=== PATIENT | male | born 1930 | race Caucasian/White ===

== ENCOUNTER 2016-07-08 07:38 | Inpatient (IN) | payer OTHER ==
[2016-07-08] VITALS (16 sets, daily range): BP systolic 98–159; BP diastolic 19–99
[~2016-07-08] VITALS: Ht 188 cm; Wt 113.5 kg
[~2016-07-08 07:38] MED LIST: CARDIZEM CD240 MG PO; CIPRO250 MG PO; DIOVAN HCT 31 TABLE1 PO; FENOFIBRATE200 M1 PO; GLUCOPHAGE500 MG PO; IMIPRAMINE HCL10 MG PO; LEVEMIR FL100 UNIT/1 SC; LEVEMIR100 UNIT/2 SC; LISINOPRIL20 MG PO; NOVOLOG PE100 UNITS/ SC; PROBIOTIC1 EAC3 PO; ROCEPHIN1000 MG IM; TAMSULOSIN HCL0.4 MG PO; TYLENOL EXTRA500 MG PO; ZESTRIL20 MG PO
[2016-07-08 07:59] LABS: EOSINOPHIL (%) 0.5 % (0-5); EOSINOPHIL COUNT 0.1 K/uL (0-0.3); HEMATOCRIT 50.6 % (38.0-50.0); IMMATURE GRANULOCYTE (%) 0.6 % (0.0-0.7); IMMATURE GRANULOCYTE COUNT 0.1 K/uL; INSTRUMENT ABS NEUTROPHIL CT 8.9 K/uL; LYMPHOCYTE COUNT 2.6 K/uL (1.0-2.8); MCH 29.9 PG (29.0-34.0); MCHC 34.6 G/DL (30.0-36.0); MCV 86.5 FL (86-99); MEAN PLAT.VOLUME 9.8 uM^3 (9.0-12.4); MONOCYTE (%) 11.6 % (3-12); MONOCYTE COUNT 1.5 K/uL (0-0.8); NEUTROPHIL (%) 67.3 % (45-76); NEUTROPHIL COUNT 8.9 K/uL (1.8-6.4); PLATELET COUNT 307 K/uL (156-360); RBC DIS.WIDTH-CV 13.2 % (11.8-14.6); RBC DIS.WIDTH-SD 41.1 % (39-53); RED BLOOD COUNT 5.85 M/uL (4.00-5.50); WHITE BLOOD COUNT 13.3 K/uL (4.1-10.2)
[2016-07-08 08:28] LABS: AMYLASE 15 IU/L (1-118); ANION GAP 12 MEQ/L (2-14); CHLORIDE 94 MEQ/L (99-109); SAMPLE HEMOLYSIS CHECK 0; SAMPLE ICTERIC CHECK 0; SAMPLE LIPEMIA CHECK 0; SODIUM 132 MEQ/L (136-147)
[2016-07-08 08:38] LABS: INTER. NORMALIZED RATIO 1.1; PROTHROMBIN TIME 11.3 (9.2-11.2); PTT 33.7 (25-32)
[2016-07-08 08:46] LABS: GFR ESTIMATE (CALCULATED) > 59 mL/min/; GLUCOSE 347 mg/dL (70-99); LIPASE 19 U/L (1.0-51.0); SERUM ETHYL ALCOHOL < 10 mg/dL; UREA NITROGEN (BUN) 25 mg/dL (9-23)
[2016-07-08 08:52] LABS: TROP-I INTERPRETATION POSITIVE; TROPONIN-I 102.38 ng/mL (0.0-0.30)
[2016-07-08 09:21] LABS: CREATINE KINASE 661 IU/L (1-294); TOTAL CK 661 IU/L (1-294)
[2016-07-08 09:49] LABS: CK-MB 26.1 ng/mL (0.0-4.9)
[2016-07-08 11:47] LABS: METH RESISTANT S AUREUS PCR NEGATIVE (NEGATIVE); PROBE CHECK PASS; SPECIMEN PROCESSING CONTROL PASS
[2016-07-08 12:10] LABS: HDL CHOLESTEROL 46 MG/DL (Desirable>=40); LDL CHOLESTEROL 57 mg/dL (Desirable<100); NON-HDL CHOLESTEROL 85 mg/dL (Desirable<160); TOTAL CHOLESTEROL 131 mg/dL (Desirable<200); TRIGLYCERIDES 142 MG/DL (Normal: <150)
[2016-07-08] MEDS ORDERED: TOUJEO SOL300 UNIT/1 SC (12:39)
[2016-07-08 13:09] LABS: Estimated Average Glucose 326 mg/dL (70-123)
[2016-07-08 15:15] LABS: TROP-I INTERPRETATION POSITIVE; TROPONIN-I 136.54 ng/mL (0.0-0.30)
[2016-07-08 18:14] LABS: POINT-OF-CARE METER ID UU14162636
[2016-07-08 20:58] LABS: CREATINE KINASE 536 IU/L (1-294); TOTAL CK 536 IU/L (1-294)
[2016-07-08 21:18] LABS: TROP-I INTERPRETATION POSITIVE; TROPONIN-I 115.44 ng/mL (0.0-0.30)
[2016-07-08 21:26] LABS: CK-MB 27.7 ng/mL (0.0-4.9)
[2016-07-08 21:47] LABS: POINT-OF-CARE METER ID UU14174217
[2016-07-09] VITALS (24 sets, daily range): BP systolic 78–124; BP diastolic 48–75
[2016-07-09 02:46] LABS: CREATINE KINASE 663 IU/L (1-294); TOTAL CK 663 IU/L (1-294)
[2016-07-09 03:06] LABS: TROP-I INTERPRETATION POSITIVE
[2016-07-09 03:08] LABS: TROPONIN-I 124.34 ng/mL (0.0-0.30)
[2016-07-09 10:31] LABS: ANION GAP 13 MEQ/L (2-14); CHLORIDE 96 MEQ/L (99-109); GFR ESTIMATE (CALCULATED) 44 mL/min/; POTASSIUM 4.2 MEQ/L (3.7-5.4); SAMPLE HEMOLYSIS CHECK 0; SAMPLE ICTERIC CHECK 0; SAMPLE LIPEMIA CHECK 0; SODIUM 132 MEQ/L (136-147); UREA NITROGEN (BUN) 33 mg/dL (9-23)
[2016-07-09 10:33] LABS: POINT-OF-CARE METER ID UU13113731
[2016-07-09 10:34] LABS: GLUCOSE 68 mg/dL (70-99)
[2016-07-09 10:50] LABS: BASOPHIL COUNT 0.1 K/uL (0-0.1); EOSINOPHIL (%) 0.2 % (0-5); HEMATOCRIT 46.2 % (38.0-50.0); IMMATURE GRANULOCYTE (%) 0.7 % (0.0-0.7); IMMATURE GRANULOCYTE COUNT 0.1 K/uL; INSTRUMENT ABS NEUTROPHIL CT 12.7 K/uL; MCH 29.1 PG (29.0-34.0); MCHC 33.1 G/DL (30.0-36.0); MEAN PLAT.VOLUME 10.3 uM^3 (9.0-12.4); MONOCYTE (%) 10.9 % (3-12); MONOCYTE COUNT 1.8 K/uL (0-0.8); NEUTROPHIL (%) 75.8 % (45-76); NEUTROPHIL COUNT 12.7 K/uL (1.8-6.4); PLATELET COUNT 305 K/uL (156-360); RBC DIS.WIDTH-CV 13.5 % (11.8-14.6); RBC DIS.WIDTH-SD 43.8 % (39-53); RED BLOOD COUNT 5.25 M/uL (4.00-5.50); WHITE BLOOD COUNT 16.7 K/uL (4.1-10.2)
[2016-07-09 10:57] LABS: TROP-I INTERPRETATION POSITIVE
[2016-07-09 12:20] LABS: POINT-OF-CARE METER ID UU13113731
[2016-07-09 14:36] LABS: CREATINE KINASE 847 IU/L (1-294); TOTAL CK 847 IU/L (1-294)
[2016-07-09 14:42] LABS: TROP-I INTERPRETATION POSITIVE
[2016-07-09 14:43] LABS: CK-MB 31.4 ng/mL (0.0-4.9)
[2016-07-09 14:59] LABS: TROPONIN-I 111.16 ng/mL (0.0-0.30)
[2016-07-09 15:18] LABS: POINT-OF-CARE METER ID UU13113731
[2016-07-09 17:26] LABS: POINT-OF-CARE METER ID UU13113731
[2016-07-09 19:36] LABS: CREATINE KINASE 905 IU/L (1-294); TOTAL CK 905 IU/L (1-294)
[2016-07-09 20:00] LABS: TROP-I INTERPRETATION POSITIVE; TROPONIN-I 113.44 ng/mL (0.0-0.30)
[2016-07-09 22:05] LABS: ADD MIUA? YES; BILIRUBIN NEGATIVE; BLOOD LARGE; COLOR AMBER ((YELLOW)); GLUCOSE (STRIP) NEGATIVE; KETONES NEGATIVE; LEUKOCYTES MODERATE; NITRITE NEGATIVE; PROTEIN (STRIP) 100; SPECIFIC GRAVITY 1.042 (1.000-1.030); UROBILINOGEN 0.2 MG/DL (0.2-1.0)
[2016-07-09 22:24] LABS: POINT-OF-CARE METER ID UU13113731
[2016-07-09 22:40] LABS: RED BLOOD CELLS TNTC /HPF (0-5)
[2016-07-09 22:41] LABS: BACTERIA 2+ /HPF; EPITHELIAL CELLS NONE SEEN /HPF; MUCUS 1+ /LPF; UCUL ADDED? YES
[2016-07-10] VITALS (23 sets, daily range): BP systolic 85–130; BP diastolic 58–95
[2016-07-10 07:36] LABS: POINT-OF-CARE METER ID UU14174217
[2016-07-10 10:10] LABS: TROP-I INTERPRETATION POSITIVE
[2016-07-10 10:39] LABS: TROPONIN-I 101.08 ng/mL (0.0-0.30)
[2016-07-10 11:57] LABS: POINT-OF-CARE METER ID UU13113731
[2016-07-10 14:23] LABS: ALKALINE PHOSPHATASE 65 IU/L (3-129); ANION GAP 13 MEQ/L (2-14); CHLORIDE 94 MEQ/L (99-109); GFR ESTIMATE (CALCULATED) 28 mL/min/; POTASSIUM 3.8 MEQ/L (3.7-5.4); SAMPLE HEMOLYSIS CHECK 0; SAMPLE ICTERIC CHECK 0; SAMPLE LIPEMIA CHECK 0; SODIUM 129 MEQ/L (136-147); TOTAL BILIRUBIN 0.4 MG/DL (0.0-1.0)
[2016-07-10 14:26] LABS: GLUCOSE 115 mg/dL (70-99); UREA NITROGEN (BUN) 50 mg/dL (9-23)
[2016-07-10 17:30] LABS: POINT-OF-CARE METER ID UU13113731
[2016-07-10 20:02] LABS: CHLORIDE 98 mEq/L (99-109); POTASSIUM 3.9 mEq/L (3.7-5.4); SODIUM 130 mEq/L (136-147)
[2016-07-10 20:04] LABS: GLUCOSE 135 mg/dL (70-99)
[2016-07-10 20:06] LABS: ANION GAP 13 MEQ/L (2-14)
[2016-07-10 20:08] LABS: GFR ESTIMATE (CALCULATED) 29 mL/min/
[2016-07-10 20:09] LABS: UREA NITROGEN (BUN) 53 mg/dL (9-23)
[2016-07-11] VITALS (11 sets, daily range): BP systolic 91–141; BP diastolic 55–93
[2016-07-11 06:37] LABS: POINT-OF-CARE METER ID UU14174217
[2016-07-11 09:02] LABS: HEMATOCRIT 43.2 % (38.0-50.0); MCH 30.2 PG (29.0-34.0); MCHC 34.3 G/DL (30.0-36.0); MCV 88.2 FL (86-99); MEAN PLAT.VOLUME 10.4 uM^3 (9.0-12.4); PLATELET COUNT 312 K/uL (156-360); RBC DIS.WIDTH-CV 13.7 % (11.8-14.6); RBC DIS.WIDTH-SD 44.5 % (39-53); WHITE BLOOD COUNT 14.5 K/uL (4.1-10.2)
[2016-07-11 09:23] LABS: ALKALINE PHOSPHATASE 75 IU/L (3-129); ANION GAP 13 MEQ/L (2-14); CHLORIDE 101 MEQ/L (99-109); GFR ESTIMATE (CALCULATED) 32 mL/min/; POTASSIUM 4.1 MEQ/L (3.7-5.4); SAMPLE HEMOLYSIS CHECK 0; SAMPLE ICTERIC CHECK 0; SAMPLE LIPEMIA CHECK 0; SODIUM 132 MEQ/L (136-147); TOTAL BILIRUBIN 0.4 MG/DL (0.0-1.0); UREA NITROGEN (BUN) 52 mg/dL (9-23)
[2016-07-11 09:24] LABS: GLUCOSE 78 mg/dL (70-99)
[2016-07-11 09:55] LABS: TROP-I INTERPRETATION POSITIVE; TROPONIN-I 67.51 ng/mL (0.0-0.30)
[2016-07-11 11:52] LABS: POINT-OF-CARE METER ID UU14174217
[2016-07-11 14:58] LABS: POINT-OF-CARE METER ID UU13113731
[2016-07-11 14:59] LABS: POINT-OF-CARE METER ID UU14174217
[2016-07-11 17:01] LABS: POINT-OF-CARE METER ID UU14174217
[2016-07-11 22:30] LABS: POINT-OF-CARE METER ID UU13113731
[2016-07-12] VITALS (8 sets, daily range): BP systolic 100–133; BP diastolic 60–77
[2016-07-12 08:33] LABS: POINT-OF-CARE METER ID UU13113731
[2016-07-12 09:59] LABS: ALKALINE PHOSPHATASE 78 IU/L (3-129); ANION GAP 11 MEQ/L (2-14); CHLORIDE 101 MEQ/L (99-109); GFR ESTIMATE (CALCULATED) 41 mL/min/; GLUCOSE 125 mg/dL (70-99); POTASSIUM 4.3 MEQ/L (3.7-5.4); SAMPLE HEMOLYSIS CHECK 0; SAMPLE ICTERIC CHECK 0; SAMPLE LIPEMIA CHECK 0; SODIUM 132 MEQ/L (136-147); TOTAL BILIRUBIN 0.4 MG/DL (0.0-1.0); UREA NITROGEN (BUN) 52 mg/dL (9-23)
[2016-07-12 10:39] LABS: POINT-OF-CARE METER ID UU13113731
[2016-07-12 11:57] LABS: POINT-OF-CARE METER ID UU13113731
[2016-07-12 17:41] LABS: POINT-OF-CARE METER ID UU13113731
[2016-07-12 21:22] LABS: POINT-OF-CARE METER ID UU14174217; POINT-OF-CARE USER ID AGYTJR
[2016-07-13] VITALS (9 sets, daily range): BP systolic 99–148; BP diastolic 69–92
[2016-07-13 07:41] LABS: ALKALINE PHOSPHATASE 92 IU/L (3-129); ANION GAP 11 MEQ/L (2-14); CHLORIDE 99 MEQ/L (99-109); GFR ESTIMATE (CALCULATED) 44 mL/min/; GLUCOSE 213 mg/dL (70-99); POTASSIUM 4.3 MEQ/L (3.7-5.4); SAMPLE HEMOLYSIS CHECK 0; SAMPLE ICTERIC CHECK 0; SAMPLE LIPEMIA CHECK 0; SODIUM 132 MEQ/L (136-147); TOTAL BILIRUBIN 0.4 MG/DL (0.0-1.0); UREA NITROGEN (BUN) 48 mg/dL (9-23)
[2016-07-13] MEDS ORDERED: NOVOLOG PE100 UNITS/ SC (07:57)
[2016-07-13] MEDS ORDERED: DUONEB 2.5-0.5 M3 ML AEROSOL (07:57)
[2016-07-13] MEDS ORDERED: ASPIRIN EC325 MG PO (07:57)
[2016-07-13] MEDS ORDERED: AMOX TR-K CLV1 EAC4 PO (07:57)
[2016-07-13] MEDS ORDERED: LOPRESSOR25 MG PO (07:57)
[2016-07-13] MEDS ORDERED: DOCUSATE SODIU100 MG PO (07:57)
[2016-07-13] MEDS ORDERED: SPIRIVA RESPIMAT4 GM IH (07:57)
[2016-07-13] MEDS ORDERED: LISINOPRIL10 MG PO (07:57)
[2016-07-13] MEDS ORDERED: ATORVASTATIN CA80 MG PO (07:57)
[2016-07-13] MEDS ORDERED: CLOPIDOGREL75 MG PO (07:57)
[2016-07-13] MEDS ORDERED: NITROSTAT0.4 MG SL (07:57)
[2016-07-13] MEDS ORDERED: ADVAIR HFA120 INHALA IH (07:57)
[2016-07-13 08:02] LABS: HEMATOCRIT 42.3 % (38.0-50.0); MCH 29.8 PG (29.0-34.0); MCHC 33.1 G/DL (30.0-36.0); MEAN PLAT.VOLUME 10.2 uM^3 (9.0-12.4); PLATELET COUNT 335 K/uL (156-360); RBC DIS.WIDTH-CV 13.9 % (11.8-14.6)
[2016-07-13 08:04] LABS: WHITE BLOOD COUNT 8.6 K/uL (4.1-10.2)
[2016-07-13 12:18] LABS: POINT-OF-CARE METER ID UU14174217
== END 2016-07-13 16:49 | DRG 246 ==
LOC: EME 07:38 → CATH 08:38 → 4WEST 10:20
PROVIDERS: Internal Medicine; Internal Medicine Cardiovascular Disease; Internal Medicine Interventional Cardiology; Pediatrics
DX: I21.09 ST elevation (STEMI) myocardial infarction involving other coronary artery of anterior wall (principal); I25.10 Atherosclerotic heart disease of native coronary artery without angina pectoris; N17.9 Acute kidney failure, unspecified; I11.0 Hypertensive heart disease with heart failure; I50.23 Acute on chronic systolic (congestive) heart failure; N39.0 Urinary tract infection, site not specified; B95.2 Enterococcus as the cause of diseases classified elsewhere; G93.40 Encephalopathy, unspecified; E87.1 Hypo-osmolality and hyponatremia; E86.0 Dehydration; R33.9 Retention of urine, unspecified; E11.9 Type 2 diabetes mellitus without complications; G47.33 Obstructive sleep apnea (adult) (pediatric); R23.0 Cyanosis; J44.9 Chronic obstructive pulmonary disease, unspecified; E66.9 Obesity, unspecified; Z68.30 Body mass index [BMI] 30.0-30.9, adult; K21.9 Gastro-esophageal reflux disease without esophagitis; E78.5 Hyperlipidemia, unspecified; M48.00 Spinal stenosis, site unspecified; Z79.4 Long term (current) use of insulin; Z87.891 Personal history of nicotine dependence; Z91.81 History of falling
CPT/HCPCS: 71010; 80048; 80048 91; 80053; 80061; 81003; 82150; 82550; 82550 91; 82553; 82948; 83036; 83690; 84484; 85025; 85027; 85347; 85610; 85730; 86870; 86900; 86901; 86905; 86920; 87077; 87086; 87186; 87641; 93005; 93306; 94640; 94640 76; 94799; 97530 GO; 97530 GP; 99202; 99281; 99285; C1725; C1757; C1769; C1874; C1887; G0480; J0153; J0696; J1630; J1644; J1815; J1940; J2250; J3010; J3246; J7030; J7040; J7050